=== PATIENT | female | born 1965 | race Caucasian/White ===

== ENCOUNTER → 2016-02-29 | Outpatient (CLI) | payer MEDICAID | LOC: OD 15:34 | PROVIDERS: ATTEND Nurse Practitioner Adult Health | DX: R05 Cough (principal) | CPT/HCPCS: 71020; 87070; 87205 ==

== ENCOUNTER → 2016-09-19 | Outpatient (CLI) | payer MEDICAID ==
--- NOTE | 2016-09-19 13:45 | WOMENS IMAGING REPORT ---
EXAM DESCRIPTION: BILAT SCREENING MAMMO W/CAD COMPLETED DATE/TIME: 09/19/2016 11:10 am REASON FOR STUDY: ROUTINE SCREENING; Z12.31 Z12.31 ENCNTR SCREEN MAMMOGRAM FOR MALIGNANT NEOPLASM O F SARAH COMPARISON: Annual priors dating back to July 2013. TECHNIQUE: Standard craniocaudal and mediolateral oblique views of each breast recorded using digita l acquisition. LIMITATIONS: None. FINDINGS: No masses, calcifications or architectural distortion. No areas of suspicion. Read with the assistance of CAD. .[facility] - R2 Cenova Version 1.3 .[facility] - R2 Cenova Version 1.3 .[facility] - R2 Cenova Version 2.4 .[facility] [place] - R2 Cenova Version 2.4 .REPLACED BY [facility] - R2 Director Graphics Version 9.2 IMPRESSION: NORMAL MAMMOGRAM. BIRADS 1. BREAST DENSITY: b. There are scattered areas of fibroglandular density. BIRAD: 1 NEGATIVE RECOMMENDATION: ROUTINE SCREENING COMMENT: The patient has been notified of the results by letter per SA requirements. Additional no tification policies are in place for contacting patient with suspicious or incomplete findings. Quality ID #[id number]: The [employer] recommends an annual screening mammogram for women aged 40 years or over. This facility utilizes a reminder system to ensure that all patients receive reminder letters, and/or direct phone calls for appointments. This includes reminders for routine scr eening mammograms, diagnostic mammograms, or other Breast Imaging Interventions when appropriate. Th is patient will be placed in the appropriate reminder system. The [employer] (ACR) has developed recommendations for screening MRI of the breast s in certain patient populations, to be used in conjunction with mammography. Breast MRI surveillanc e may be appropriate for women with more than 20% lifetime risk of developing breast cancer as deter mined by genetic testing, significant family history of the disease, or history of mantle radiation f or Hodgkins Disease. ACR Practice Guidelines 2008. TECHNICAL DOCUMENTATION: FINDING NUMBER: (1) ASSESSMENT: (1) JOB ID: [id number] [employer]- All Rights Reserved
== END ==
LOC: WI 09:34
PROVIDERS: ATTEND Family Medicine
DX: Z12.31 Encounter for screening mammogram for malignant neoplasm of breast (principal)
CPT/HCPCS: 77067; G0202

== ENCOUNTER → 2016-10-10 | Outpatient (CLI) | payer MEDICAID | LOC: OD 16:47 | PROVIDERS: ATTEND Obstetrics & Gynecology | DX: Z53.9 Procedure and treatment not carried out, unspecified reason (principal) ==

== ENCOUNTER 2016-11-09 20:59 | Emergency (ER) | payer MEDICAID ==
--- NOTE | 2016-11-09 21:28 | RADIOLOGY REPORT (SQ) ---
EXAM DESCRIPTION: CT HEAD WITHOUT COMPLETED DATE/TIME: 11/09/2016 9:04 pm REASON FOR STUDY: STROKE ALERT COMPARISON: 06/17/2015 TECHNIQUE: Axial images acquired through the brain without intravenous contrast. Images reviewed wi th bone, brain and subdural windows. Images stored on PACS. All CT scanners at this facility use dose modulation, iterative reconstruction, and/or weight based d osing when appropriate to reduce radiation dose to as low as reasonably achievable (ALARA). [facility]: Dose Right [facility]: CareDose [facility]: Dose Right [facility]: Teradose 4D [facility]: Exent RADIATION DOSE: mGy. LIMITATIONS: None. FINDINGS: VENTRICLES: Normal size and contour. CEREBRUM: No masses. No hemorrhage. No midline shift. No evidence for acute infarction. Normal gra y/white matter differentiation. No areas of low density in the white matter. CEREBELLUM: No masses. No hemorrhage. No alteration of density. No evidence for acute infarction. EXTRAAXIAL SPACES: No fluid collections. No masses. ORBITS AND GLOBE: No intra- or extraconal masses. Normal contour of globe without masses. CALVARIUM: No fracture. PARANASAL SINUSES: No fluid or mucosal thickening. SOFT TISSUES: No mass or hematoma. OTHER: No other significant finding. IMPRESSION: No acute intracranial findings. EVIDENCE OF ACUTE STROKE: NO. COMMENT: Quality ID # [id number]: Final reports with documentation of one or more dose reduction techniques (e.g., Automated exposure control, adjustment of the mA and/or kV according to patient size, use of iterative reconstruction technique) TECHNICAL DOCUMENTATION: JOB ID: [id number] [employer]- All Rights Reserved
--- NOTE | 2016-11-09 21:37 | RADIOLOGY REPORT (SQ) ---
EXAM DESCRIPTION: CHEST SINGLE VIEW COMPLETED DATE/TIME: 11/09/2016 9:07 pm REASON FOR STUDY: STROKE ALERT COMPARISON: 02/29/2016 NUMBER OF VIEWS: One view. TECHNIQUE: Single frontal radiographic view of the chest acquired. LIMITATIONS: None. FINDINGS: LUNGS AND PLEURA: No acute opacities, masses or pneumothorax. No pleural effusion. MEDIASTINUM AND HILAR STRUCTURES: Stable. HEART AND VASCULAR STRUCTURES: Heart enlarged without failure. Normal vasculature. BONES: No acute findings. HARDWARE: None in the chest. OTHER: No other significant finding. IMPRESSION: No acute finding. TECHNICAL DOCUMENTATION: JOB ID: [id number] [employer]- All Rights Reserved
[2016-11-09 21:45] LABS: ABSOLUTE BASOPHILS # (AUTO) 0.1 10^3/uL (0.0-0.2); ABSOLUTE EOSINOPHILS # (AUTO) 0.3 10^3/uL (0.0-0.6); ABSOLUTE LYMPHOCYTES (AUTO) 4.3 10^3/uL (0.5-4.7); ABSOLUTE MONOCYTES (AUTO) 0.7 10^3/uL (0.1-1.4); BASOPHILS % (AUTO) 1.3 % (0-2); EOSINOPHILS % (AUTO) 3.1 % (0-6); HEMATOCRIT 40.1 % (36.0-47.0); HEMOGLOBIN 14.2 g/dL (12.0-15.5); HGB HCT DIFFERENCE 2.5; LYMPHOCYTES % (AUTO) 51.4 % (13-45); MEAN CORPUSCULAR HEMOGLOBIN 30.9 pg (27.0-33.4); MEAN CORPUSCULAR HGB CONC 35.5 g/dL (32.0-36.0); MEAN CORPUSCULAR VOLUME 87 fl (80-97); MONOCYTES % (AUTO) 8.7 % (3-13); RED BLOOD COUNT 4.59 10^6/uL (3.72-5.28); RED CELL DISTRIBUTION WIDTH 12.5 % (11.5-14.0); SEGMENTED NEUTROPHILS % (AUTO) 35.5 % (42-78); WHITE BLOOD COUNT 8.3 10^3/uL (4.0-10.5)
[2016-11-09] MEDS ORDERED: KETOROLAC TROMETHAMINE INJ/PF 30 MG/1 ML SDV IV ONE (21:48)
[2016-11-09] MEDS ORDERED: NORMAL SALINE 1000 ML 1,000 ML IV ONE (21:48)
[2016-11-09] MEDS ORDERED: PROCHLORPERAZINE EDISYLATE INJ 10 MG/2 ML VIAL IV ONE (21:48)
[2016-11-09] MEDS ORDERED: DIPHENHYDRAMINE HCL 50 MG/ML VIAL IV ONE (21:48)
[2016-11-09 21:52] LABS: PROTHROMBIN TIME 12.1 SEC (11.4-15.4)
--- NOTE | 2016-11-09 21:52 | ER Document Report ---
ED General - General Stated Complaint: HEADACHE,NUMBNESS BOTH LEGS Time Seen by Provider: 11/09/16 21:20 Notes: Patient is a 51-year-old female with a past medical history of complex migraines , hypertension, who presents with a headache, diffuse weakness, numbness, and difficulty speaking. Initial history is very difficult to ascertain as patient has minimal speech content on presentation. Per EMS and family patient was apparently not feeling well all day today, drove to the daughter's work, stated she did not feel well and and subsequently was noted to be having difficulty speaking and was subsequently transported to the emergency department. She does have a history of complex migraines although not with this presentation in the past. Nothing improves or worsens her symptoms. History is otherwise limited secondary to patient's difficulty speaking. TRAVEL OUTSIDE OF THE [place] IN LAST 30 DAYS: No - Related Data Allergies/Adverse Reactions: No Known Allergies Allergy (Verified 08/16/15 11:17) Past Medical History - General Information source: Patient - Social History Smoking Status: Never Smoker Frequency of alcohol use: None Drug Abuse: None Lives with: Family Family History: Reviewed & Not Pertinent, CVA - Past Medical History Cardiac Medical History: Denies: Hx Coronary Artery Disease, Hx Heart Attack, Hx Hypertension Pulmonary Medical History: Denies: Hx Asthma, Hx Bronchitis, Hx COPD, Hx Pneumonia, Hx Tuberculosis Neurological Medical History: Reports: Hx Migraine. Denies: Hx Cerebrovascular Accident, Hx Seizures Endocrine Medical History: Denies: Hx Diabetes Mellitus Type 1, Hx Diabetes Mellitus Type 2 Musculoskeltal Medical History: Denies Hx Arthritis Psychiatric Medical History: Reports: Hx Anxiety, Hx Depression - Immunizations Hx Diphtheria, Pertussis, Tetanus Vaccination: Yes Hx Pneumococcal Vaccination: 12/17/12 Review of Systems - Review of Systems Notes: Constitutional: Negative for fever. HENT: Negative for sore throat. Eyes: Negative for visual changes. Cardiovascular: Negative for chest pain. Respiratory: Negative for shortness of breath. Gastrointestinal: Negative for abdominal pain, vomiting or diarrhea. Genitourinary: Negative for dysuria. Musculoskeletal: Negative for back pain. Skin: Negative for rash. Neurological: Positive for headache 10 point ROS negative except as marked above and in HPI. Physical Exam - Vital signs Vitals: Resp BP Pulse Ox 15 138/87 H 99 11/09/16 21:10 11/09/16 21:10 11/09/16 21:10 Interpretation: Normal Notes: PHYSICAL EXAMINATION: GENERAL: Appears in no acute distress, somewhat lethargic HEAD: Atraumatic, normocephalic. EYES: Pupils equal round and reactive to light, extraocular movements intact, sclera anicteric, conjunctiva are normal. ENT: nares patent, oropharynx clear without exudates. Moderately dry mucous membranes. NECK: Normal range of motion, supple without lymphadenopathy LUNGS: Breath sounds clear to auscultation bilaterally and equal. No wheezes rales or rhonchi. HEART: Regular rate and rhythm without murmurs ABDOMEN: Soft, nontender, normoactive bowel sounds. No guarding, no rebound. No masses appreciated. EXTREMITIES: Normal range of motion, no pitting or edema. No cyanosis. NEUROLOGICAL: Face symmetric, tongue protrudes midline, extraocular motions intact. Pupils 3 mm equally reactive. Patient drops both arms when they are held in the air but then raises the right arm spontaneously. Patient allows both legs to drop to the bed and makes no effort to hold either up. She wiggles toes on both sides on command but will not follow commands in the left upper extremity. She does give a thumbs up in the right upper extremity when requested. PSYCH: Somewhat lethargic SKIN: Warm, Dry, normal turgor, no rashes or lesions noted. Course - Re-evaluation Re-evalutation: 11/09/16 21:48 Patient presents with altered mental status, multiple neurologic complaints. Her examination is not consistent with a CVA. She has bilateral symptoms which by its very nature excludes CVA. She has no effort in the bilateral lower extremities, initially no effort in the bilateral upper extremity at all but then she does raise her right arm voluntarily. She follow commands in both lower extremities but only the right upper extremity. She has no facial droop. No dysarthria. She is delayed in her responses although when she speaks it is clear. 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 I do not suspect an acute cord injury. Patient apparently has been complaining of feeling generally unwell for the past several days as well as having a headache. She does have a history of complex migraines in the past and I suspect that may be the etiology of today's presentation. CT scan of the head is without any evidence of acute intracranial bleed. Chest x-ray clear. Stroke screening labs were sent in triage. Will proceed with a migraine cocktail, labs and reassess. 11/09/16 22:47 Patient is now moving all extremities, full 5 out of 5 strength throughout. She answers all questions correctly. States her headache is still mildly present but is mostly resolved. 11/10/16 00:45 Patient remains without any neurologic deficits, remains somewhat lethargic after receiving IV diphenhydramine but wakes easily and follows all commands, no focal neurologic deficits. He has been able to ambulate and tolerate oral intake. At this time will discharge with return precautions and follow-up recommendations. Verbal discharge instructions given a the bedside and opportunity for questions given. Medication warnings reviewed. Patient is in agreement with this plan and has verbalized understanding of return precautions and the need for primary care follow-up in the next 24-72 hours. 11/10/16 04:06 - Vital Signs Vital signs: Temp Pulse Resp BP Pulse Ox 97 F L 59 L 13 113/73 94 11/09/16 21:56 11/09/16 21:56 11/10/16 01:08 11/10/16 01:08 11/10/16 01:08 - Laboratory Result Diagrams: 11/09/16 21:32 11/09/16 21:32 Laboratory results interpreted by me: 11/09/16 21:32 Seg Neutrophils % 35.5 L Lymphocytes % 51.4 H - Diagnostic Test Radiology reviewed: Image reviewed, Reports reviewed Radiology results interpreted by me: 11/10/16 04:07 CT head: No acute intracranial bleed - EKG Interpretation by Me Additional EKG results interpreted by me: 11/10/16 04:08 Sinus bradycardia. Rate 56. No ST elevations or depressions. QTC is 444. Discharge - Discharge Clinical Impression: Weakness Migraine headache Qualifiers: Migraine type: hemiplegic Status migrainosus presence: with status migrainosus Intractability: not intractable Qualified Code(s): G43.401 - Hemiplegic migraine , not intractable, with status migrainosus Condition: Stable Disposition: HOME, SELF-CARE Additional Instructions: You were seen today for a migraine headache. Please follow-up with your primary care doctor regarding today's ED visit. Return to emergency department immediately if you develop a headache that gets to its maximum severity within 20 minutes of onset, you pass out, you develop weakness, numbness, changes in your vision, become unable to keep any fluids down for more than 12 hours, or develop a fever greater than 100.4 degrees Fahrenheit. If you develop a similar migraine headache in the future I recommend that you immediately take 600 mg of ibuprofen and 50 mg of Benadryl and go to sleep as quickly as possible. This can often prevent your migraine headache from becoming severe.
[2016-11-09 21:53] LABS: PARTIAL THROMBOPLASTIN TIME 26.8 SEC (23.5-35.8)
[2016-11-09 22:03] LABS: ALANINE AMINOTRANSFERASE 25 U/L (9-52); ALBUMIN 4.1 g/dL (3.5-5.0); ALKALINE PHOSPHATASE 116 U/L (38-126); ANION GAP 9 (5-19); ASPARTATE AMINO TRANSFERASE 24 U/L (14-36); BILIRUBIN,DIRECT 0.4 mg/dL (0.0-0.4); BILIRUBIN,TOTAL 0.6 mg/dL (0.2-1.3); BLOOD UREA NITROGEN 17 mg/dL (7-20); CARBON DIOXIDE 24 mmol/L (22-30); CHLORIDE 107 mmol/L (98-107); CREATINE KINASE 124 U/L (30-135); CREATININE RESULT 0.79 mg/dL (0.52-1.25); GLUCOSE 110 mg/dL (75-110); POTASSIUM 4.1 mmol/L (3.6-5.0); SODIUM 140.2 mmol/L (137-145); TOTAL PROTEIN 7.3 g/dL (6.3-8.2)
[2016-11-09 22:15] LABS: CREATINE KINASE MB 1.34 ng/mL (<4.55)
[2016-11-09 22:16] LABS: TROPONIN I < 0.012 ng/mL
[2016-11-09] MEDS ORDERED: HALOPERIDOL LACTATE INJ 5 MG/1 ML VIAL IV ONE (22:42)
[2016-11-09] MEDS ORDERED: DEXAMETHASONE SOD PHOS INJ 10 MG/1 ML VIAL IV ONE (22:47)
[2016-11-10 00:27] LABS: APPEARANCE,URINE CLEAR; BILIRUBIN,URINE NEGATIVE (NEGATIVE); GLUCOSE, URINE NEGATIVE (NEGATIVE); KETONES,URINE NEGATIVE (NEGATIVE); LEUKOCYTE ESTERASE,URINE NEGATIVE (NEGATIVE); NITRITE,URINE NEGATIVE (NEGATIVE); PROTEIN,URINE NEGATIVE (NEGATIVE); URINE SPECIFIC GRAVITY 1.023; UROBILINOGEN,URINE NEGATIVE mg/dL (<2.0)
[2016-11-10 01:18] VITALS: BP 113/73
--- NOTE | 2016-11-10 10:59 | EKG REPORT ---
SEVERITY:- NORMAL ECG - SINUS RHYTHM : Confirmed by: Debbie Christy MD 10-Nov-2016 10:57:40
== END 2016-11-10 01:18 | disposition home or self-care (01) ==
LOC: ER 20:59
DX: G43.401 Hemiplegic migraine, not intractable, with status migrainosus (principal); R53.1 Weakness
CPT/HCPCS: 93005; 99284; 96361; 96374; 96375; 36415; 82553; 82550; 85025; 85610; 85730; 80053; 81001; 84484; 71010; 70450; 93010; J1200; J1885; J0780; J7030; J1100

== ENCOUNTER 2018-03-25 19:01 | Emergency (ER) | payer MEDICAID ==
[2018-03-25 20:40] VITALS: BP 147/91
--- NOTE | 2018-03-26 07:40 | EKG REPORT ---
SEVERITY:- NORMAL ECG - SINUS RHYTHM : Confirmed by: Giancarlo Jackson MD 26-Mar-2018 07:39:34
== END 2018-03-25 22:03 | disposition left against medical advice (07) ==
LOC: ER 19:01
DX: Z53.21 Procedure and treatment not carried out due to patient leaving prior to being seen by health care provider (principal)
CPT/HCPCS: 93005; 93010

== ENCOUNTER 2019-07-27 16:49 | Emergency (ER) | payer MEDICAID ==
--- NOTE | 2019-07-27 19:39 | ER Document Report ---
ED General - General Chief Complaint: Congestion Stated Complaint: CONGESTION Time Seen by Provider: 07/27/19 18:53 Primary Care Provider: LUPE RUANO NP [Primary Care Provider] - Follow up in 1 week TAVON AVILA DO [ASSOCIATE] - Follow up in 3-5 days Notes: Patient is a 53-year-old female who presents to the emergency department with a chief complaint of sinus pain. Patient states that she has had sinus pressure for about 3 weeks now. Patient was placed on clindamycin for possible tooth infection. She went to the dentist and she did have a cavity, but she finished clindamycin and continues to have pain. She states that she feels like she has an awful taste/odor coming from her nose. Admits to sinus pressure in the right maxillary area. Patient has had sinus problems in the past. Patient was also taking Flonase. Patient states that she feels the Flonase gave her a bloody nose, therefore she stopped taking it. Denies any loss of taste or smell. Denies any recent travel. TRAVEL OUTSIDE OF THE [place] IN LAST 30 DAYS: No - Related Data Allergies/Adverse Reactions: No Known Allergies Allergy (Verified 08/16/15 11:17) Home Medications: zoloft, prilosec Past Medical History - General Information source: Patient - Social History Smoking Status: Current Every Day Smoker Frequency of alcohol use: Rare Family History: Reviewed & Not Pertinent, CVA Patient has homicidal ideation: No - Past Medical History Cardiac Medical History: Denies: Hx Coronary Artery Disease, Hx Heart Attack, Hx Hypertension Pulmonary Medical History: Denies: Hx Asthma, Hx Bronchitis, Hx COPD, Hx Pneumonia, Hx Tuberculosis Neurological Medical History: Reports: Hx Migraine. Denies: Hx Cerebrovascular Accident, Hx Seizures Endocrine Medical History: Denies: Hx Diabetes Mellitus Type 1, Hx Diabetes Mellitus Type 2 Renal/ Medical History: Denies: Hx Peritoneal Dialysis Musculoskeletal Medical History: Denies Hx Arthritis Psychiatric Medical History: Reports: Hx Anxiety, Hx Depression - Immunizations Hx Diphtheria, Pertussis, Tetanus Vaccination: Yes Hx Pneumococcal Vaccination: 12/17/12 Review of Systems - Review of Systems Notes: REVIEW OF SYSTEMS: CONSTITUTIONAL : Denies recent illness. Denies recent unintentional weight loss. Denies fever, chills, or sweats. EENT: See HPI. CARDIOVASCULAR: Denies chest pain. RESPIRATORY: Denies shortness of breath, cough, congestion, difficulty breathing, or wheezing. GASTROINTESTINAL: Denies nausea, vomiting, and diarrhea. Denies abdominal pain. Denies constipation. GENITOURINARY: Denies difficulty urinating, burning, blood in urine, urgency or frequency. MUSCULOSKELETAL: Denies neck and back pain. Denies joint pain or swelling. SKIN: Denies rash, itchiness, or lesions HEMATOLOGIC : Denies easy bruising or bleeding. LYMPHATIC: Denies swollen, painful, enlarged glands. NEUROLOGICAL: Denies no numbness or tingling denies weakness. Denies headache. Denies altered mental status. Denies alteration in speech. PSYCHIATRIC: Denies stress, anxiety, alteration in sleep patterns, or depression. All other systems reviewed and negative. Physical Exam - Vital signs Vitals: Temp Pulse Resp BP Pulse Ox 99.0 F 93 20 125/100 H 96 07/27/19 18:01 07/27/19 18:01 07/27/19 18:01 07/27/19 18:01 07/27/19 18:01 - Notes Notes: PHYSICAL EXAMINATION: GENERAL: Appears well, healthy, well-nourished, no acute distress. HEAD: Normocephalic, atraumatic. EYES: PERRL, conjunctiva normal, all extraocular movements intact, sclera nonicteric ENT: Moist mucous membranes. Tenderness noted to right maxillary sinus. NECK: Supple, no noticeable swelling, redness, rash. Normal range of motion. LUNGS: Equal breath sounds bilaterally and clear to auscultation. No wheezes rales or rhonchi. CARDIOVASCULAR: S1-S2, regular rate, regular rhythm. Radial pulses 2+, normal. ABDOMEN: Normoactive bowel sounds. Soft, nontender, no guarding, no rebound tenderness, and no masses palpated. EXTREMITIES: Normal strength and range of motion, no pitting or edema. No cyanosis. NEUROLOGICAL: Moves all extremities upon command. Strength 5/5 in all extremities. PSYCH: Normal mood, normal affect. SKIN: Warm, dry. No rash, lesions, ulcerations noted. Normal skin turgor. Course - Re-evaluation Re-evalutation: 07/27/19 Patient's history and physical exam, patient has acute sinusitis. She was treated with clindamycin, but failed this treatment. Due to this, the patient will be treated with Augmentin. Patient will be started on cetirizine and Pepcid. I will also refer her out for ENT evaluation. Uvula is midline. I do not suspect Jean-Pierre's angina, peritonsillar abscess, or any life-threatening etiology at this time. Airway is patent. Patient is also requesting be tested for COVID-19. We will test her and health department will follow. Patient agrees to self isolate until results are back or for 2 weeks if it is positive. Follow-up precautions were given. Verbal discharge instructions were given to the patient. They verbalized understanding. They are stable for discharge. - Vital Signs Vital signs: Temp Pulse Resp BP Pulse Ox 98.8 F 87 18 127/86 H 97 07/27/19 20:41 07/27/19 20:41 07/27/19 20:41 07/27/19 20:41 07/27/19 20:41 Discharge - Discharge Clinical Impression: Suspected COVID-19 virus infection Acute sinusitis Qualifiers: Sinusitis location: maxillary Recurrence: not specified as recurrent Qualified Code(s): J01.00 - Acute maxillary sinusitis, unspecified Condition: Stable Disposition: HOME, SELF-CARE Additional Instructions: You were seen today in the emergency department for sinus congestion. You are being placed on Augmentin to treat a sinus infection. Please take your antibiotics as prescribed. Make sure you finish all your medication. You are also being started on Pepcid. Take this as prescribed. Take cetirizine in the morning and take Benadryl at night. You are also being tested for COVID-19. The health department will call you with your results. Make sure you stay in quarantine until your test results are back. If your test results are positive, stay at home for a total of 2 weeks. If your test results are negative, follow-up with ENT as soon as possible for follow-up on your sinus infection. Prescriptions: Cetirizine HCl [All Day Allergy] 10 mg PO DAILY #30 tablet Amoxicillin/Potassium Clav [Augmentin 875-125 Tablet] 1 tab PO BID #20 tab Famotidine [Pepcid 20 mg Tablet] 20 mg PO BID #20 tablet Referrals: LUPE RUANO NP [Primary Care Provider] - Follow up in 1 week TAVON AVILA DO [ASSOCIATE] - Follow up in 3-5 days
[2019-07-27 20:43] VITALS: BP 127/86
== END 2019-07-27 20:41 | disposition home or self-care (01) ==
LOC: ER 16:49
DX: J01.00 Acute maxillary sinusitis, unspecified (principal); F17.200 Nicotine dependence, unspecified, uncomplicated; J34.89 Other specified disorders of nose and nasal sinuses; F32.9 Major depressive disorder, single episode, unspecified; F41.9 Anxiety disorder, unspecified; Z79.899 Other long term (current) drug therapy; Z20.828 Contact with and (suspected) exposure to other viral communicable diseases
CPT/HCPCS: 99283; 87635; C9803; 36415